=== PATIENT | female | born 1970 | race African-American/Black ===

== ENCOUNTER 2021-04-20 15:07 | Emergency (ER) | payer OTHER ==
[~2021-04-20] VITALS: Ht 170.2 cm; Wt 63.5 kg
[2021-04-20 15:29] VITALS: BP 140/90
--- NOTE | 2021-04-20 15:30 | NUR ---
PT SHERRIA TO [facility] AT THIS TIME.
[2021-04-20 17:02] LABS: BASOPHILS % (AUTO) 0.5 % (0.0-2.0); EOSINOPHILS # (AUTO) 0.7 K/uL (0-0.4); EOSINOPHILS % (AUTO) 10.7 % (0.0-4.0); HEMATOCRIT 32.6 % (36-48); HEMOGLOBIN 10.8 g/dL (12.0-16.0); LYMPHOCYTES # (AUTO) 1.6 K/uL (2.5-16.5); LYMPHOCYTES % (AUTO) 23.5 % (20.5-51.1); MEAN CORPUSCULAR HEMOGLOBIN 29 pg (27-31); MEAN CORPUSCULAR HGB CONC 33 g/dL (33-37); MEAN CORPUSCULAR VOLUME 86.1 fL (80-94); MONOCYTES # (AUTO) 0.7 K/uL (0.8-1.0); MONOCYTES % (AUTO) 9.4 % (1.7-9.3); NEUTROPHILS # (AUTO) 3.9 K/uL (1.8-7.7); NEUTROPHILS % (AUTO) 55.9 % (42.2-75.2); PLATELET COUNT (AUTO) 405 K/uL (140-450); RED BLOOD CELL COUNT(AUTO) 3.79 MIL/uL (4.20-5.40); RED CELL DISTRIBUTION WIDTH 15.4 % (11.6-13.7)
[2021-04-20 17:19] LABS: ANION GAP 12.3 (8-16); CARBON DIOXIDE 27.4 mmol/L (21-32); CREATININE 0.8 mg/dL (0.6-1.3); POTASSIUM 3.7 mmol/L (3.5-5.1)
[2021-04-20] MEDS ORDERED: IBUP-2213 PO (17:48)
--- NOTE | 2021-04-20 18:00 | NUR ---
PT LEFT WITHOUT PAPERWORK.
--- NOTE | 2021-04-20 18:00 | NUR ---
NO NURSING INTERVENTIONS DONE NO NURSING INTERVENTIONS NEEDED.
[2021-04-20 18:02] VITALS: BP 140/90
== END 2021-04-20 18:29 | disposition home or self-care (01) ==
LOC: MED 15:07
DX: M79.10 Myalgia, unspecified site (principal); R55 Syncope and collapse
CPT/HCPCS: 36415; 80048; 85025; 93005; 99283; 99284

== ENCOUNTER 2021-05-21 01:04 | Emergency (ER) | payer MEDICAID, OTHER ==
[~2021-05-21] VITALS: Ht 170.2 cm; Wt 59.0 kg
[~2021-05-21 01:04] MED LIST: IBUP-2213 PO
[2021-05-21 01:14] VITALS: BP 108/75
--- NOTE | 2021-05-21 01:14 | NUR ---
CHRISTOPHER , IS HOMELESS, WITH C/O COUGH X 1 MONTH. TRANSFERED TO [facility] THEN TO [facility], BROUGHT INTO TRIAGE WHILE EATING DOUGHNUT. NO COUGH NOTED AT THIS TIME
--- NOTE | 2021-05-21 01:40 | NUR ---
RETURNED FROM X-RAY
--- NOTE | 2021-05-21 01:47 | NUR ---
PT REFUSING LAB DRAW
--- NOTE | 2021-05-21 01:50 | NUR ---
RETURNED TO LOBBY VIA W/C. AMBULATED FROM W/C TO BR WITH STEADY GAIT
[2021-05-21 04:11] VITALS: BP 111/69
--- NOTE | 2021-05-21 04:11 | NUR ---
d/c with VSS. d/c education given. opportunity to ask questions given and answered. no rx given.
== END 2021-05-21 04:11 | disposition home or self-care (01) ==
LOC: MED 01:04
DX: R05.9 Cough, unspecified (principal); M79.10 Myalgia, unspecified site
CPT/HCPCS: 71045; 99283

== ENCOUNTER 2021-06-20 00:50 | Emergency (ER) | payer MEDICAID ==
[~2021-06-20] VITALS: Ht 170.2 cm; Wt 63.5 kg
[2021-06-20 00:55] VITALS: BP 128/72
--- NOTE | 2021-06-20 00:56 | NUR ---
PT CHRISTOPHER KRISHNA VIA GURNEY TO BED 03
--- NOTE | 2021-06-20 01:00 | NUR ---
COVERING PRIMARY RN FOR LUNCH RELIEF. SEE COMPLETE ASSESSMENT
--- NOTE | 2021-06-20 01:14 | NUR ---
Dr. Gonzalez at bedside to exam patient.
--- NOTE | 2021-06-20 01:35 | NUR ---
X-ray at bedside.
[2021-06-20] MEDS ORDERED: ROB PO (01:53)
--- NOTE | 2021-06-20 02:37 | NUR ---
Dr. Gonzalez at bedside to explain results and treatment plans.
[2021-06-20 02:39] VITALS: BP 122/72
--- NOTE | 2021-06-20 02:39 | NUR ---
Patient discharged with v/s stable. Written and verbal after care instructions given and explained. Patient alert, oriented and verbalized understanding of instructions. Ambulatory with steady gait. All questions addressed prior to discharge. ID band removed. Patient advised to follow up with PMD. Rx of Robittussin given. Patient educated on indication of medication including possible reaction and side effects. Opportunity to ask questions provided and answered.
== END 2021-06-20 02:39 | disposition home or self-care (01) ==
LOC: MED 00:50
DX: R05.9 Cough, unspecified (principal); Z79.899 Other long term (current) drug therapy; Z86.73 Personal history of transient ischemic attack (TIA), and cerebral infarction without residual deficits
CPT/HCPCS: 71045; 99283; Q0092